=== PATIENT | male | born 1980 | race Caucasian/White ===

== ENCOUNTER 2016-09-18 12:51 | Emergency (ER) | payer SELFPAY ==
[~2016-09-18] VITALS: Ht 182.9 cm; Wt 95.3 kg
[2016-09-18] MEDS ORDERED: IV NORMAL SALINE 1,000ML 1,000 ML IV SCH (13:06)
[2016-09-18] MEDS ORDERED: ONDA4TAB7 PO (13:12)
--- NOTE | 2016-09-18 13:12 | PHYS DOC ---
Past History Past Medical History: No Pertinent History Past Surgical History: No Surgical History Alcohol Use: Occasionally Drug Use: Marijuana Adult General Chief Complaint Chief Complaint: NAUSEA/VOMITING/DIARRHEA HPI HPI 36-year-old male presenting to the emergency department today with nausea and vomiting. Been present for about 24-48 hours. He describes his vomitus is brown and yellow. It is nonbilious and nonbloody. He has a history of cannabis use and drinks fairly regularly. He denies fevers chills or abdominal pain. Location GI tract. Duration intermittent. No alleviating or exacerbating factors. Not improved with hot showers. Review of systems is negative for chest pain shortness of breath fevers chills. He denies diarrhea. All other review of systems is negative unless otherwise noted in history of present illness. ED course: 28-year-old gentleman presenting to the ER today with nausea and vomiting for the past few days. He reports dark urine as well and thinks she may be dehydrated. Vital signs afebrile with mild hypertension otherwise pulse within normal limits. labs obtained which showed elevated bilirubin in mild elevation in transaminases. Ultrasound obtained which was unremarkable for any acute pathology.. Physical exam shows a soft nontender abdomen. Negative McBurney's point. Negative Cook sign. The patient was given IV fluids nausea medication and lorazepam for anxiety. On reexamination the patient improved significantly. Repeat abdominal examination continues show soft nontender abdomen. He is feeling much better and was subsequent discharged home in stable condition. The patient was then discharged home in stable condition to follow up with their primary care physician over the next 2-3 days. They were to return if their symptoms worsened or if they were concerned for any reason. Face -to-face discharge instructions and return precautions were given. Patient's questions were answered to their satisfaction. Patient is comfortable plan. Review of Systems Review of Systems SEE ABOVE. Allergies Allergies Allergies Uncoded Allergies Type Severity Reaction Last Updated Verified pcn Allergy Unknown 09/18/16 Physical Exam Physical Exam Constitutional: Well developed, well nourished, no acute distress, non-toxic appearance. [] HENT: Normocephalic, atraumatic, bilateral external ears normal, oropharynx moist, no oral exudates, nose normal. [] Eyes: PERRLA, EOMI, conjunctiva normal, no discharge. [] Neck: Normal range of motion, no tenderness, supple, no stridor. [] Cardiovascular:Heart rate regular rhythm, no murmur [] Lungs & Thorax: Bilateral breath sounds clear to auscultation [] Abdomen: Bowel sounds normal, soft, no tenderness, no masses, no pulsatile masses. [] Skin: Warm, dry, no erythema, no rash. [] Back: No tenderness, no CVA tenderness. [] Extremities: No tenderness, no cyanosis, no clubbing, ROM intact, no edema. [] Neurologic: Alert and oriented X 3, normal motor function, normal sensory function, no focal deficits noted. [] Psychologic: Affect normal, judgement normal, mood normal. [] EKG EKG [] Radiology/Procedures Radiology/Procedures [] Course & Med Decision Making Course & Med Decision Making Pertinent Labs and Imaging studies reviewed. (See chart for details) [] Dragon Disclaimer Dragon Disclaimer This chart was dictated in whole or in part using Voice Recognition software in a busy, high-work load, and often noisy Emergency Department environment. It may contain unintended and wholly unrecognized errors or omissions. Departure Departure: Impression: Primary Impression: Nausea and vomiting Additional Impressions: Transaminitis Elevated bilirubin Disposition: HOME, SELF-CARE Condition: STABLE Referrals: PCP,NO (PCP) ANA HAIR MD Patient Instructions: Nausea and Vomiting, [id number] Additional Instructions: Thank you for allowing us to participate in your care today. Followup with your primary care physician in 3 days if your symptoms do not improve. Call your Primary Doctor tomorrow and inform them of your visit today. If you do not have a primary care provider you can ask for a list of our primary care providers. Return to the emergency department you have any new or concerning findings. This should be evaluated by the primary care physician and any necessary consulting services for continued management within a few days after discharge. Return to emergency room if you have any new or concerning symptoms including but not limited to fever, chills, nausea, vomiting, intractable pain, any new rashes, chest pain, shortness of air, uncontrolled bleeding, difficulty breathing, and/or vision loss. Scripts Ondansetron Hcl (ZOFRAN) 4 Mg Tablet 1 TAB PO PRN Q6HRS Y for NAUSEA, #6 TAB Prov: SIN KHAN MD 09/18/16 Problem Qualifiers SIN KHAN MD Sep 18, 2016 13:12
[2016-09-18 13:24] LABS: BASO # 0.1 x10^3/uL (0.0-0.2); BASO % 1 % (0-3); EOS # 0.2 x10^3/uL (0.0-0.7); EOS % 3 % (0-3); HEMATOCRIT 51.3 % (39.0-53.0); HEMOGLOBIN 18.1 g/dL (13.0-17.5); LYMPH % 16 % (24-48); MEAN CORPUSCULAR HEMOGLOBIN 35 pg (25-35); MEAN CORPUSCULAR HGB CONC 35 g/dL (31-37); MEAN CORPUSCULAR VOLUME 101 fL (79-100); MONO # 0.7 x10^3/uL (0.0-1.1); MONO % 11 % (0-9); NEUT # 4.1 x10^3uL (1.8-7.7); NEUT % 69 % (31-73); PLATELET COUNT 134 x10^3/uL (140-400); RED CELL DISTRIBUTION WIDTH 13.4 % (11.5-14.5)
[2016-09-18] MEDS ORDERED: LORazepam 1 MG TABLET PO ONE (13:30)
[2016-09-18] MEDS ORDERED: ONDANSETRON PF 4 MG/2 ML VIAL. IV ONE (13:30)
[2016-09-18 13:39] LABS: ALBUMIN 3.8 g/dL (3.4-5.0); CALCIUM 9.2 mg/dL (8.5-10.1); DIRECT BILIRUBIN 0.5 mg/dL (0.0-0.2); GFR 83.6; POTASSIUM 4.6 mmol/L (3.5-5.1); TOTAL PROTEIN 7.6 g/dL (6.4-8.2)
--- NOTE | 2016-09-18 14:30 | RAD ---
Right upper quadrant abdominal ultrasound, 09/18/2016: History: Nausea, vomiting, elevated liver enzymes The gallbladder is within normal limits in size. There is no sonographic evidence of cholelithiasis. The gallbladder [place] are not thickened. No bile duct dilatation is seen. The liver demonstrates generalized increased echogenicity, most commonly due to fatty change. It measures 19 cm in craniocaudad extent at the level of the right lobe. No hepatic mass is seen. The visualized portions of the pancreatic body are unremarkable. Other portions of the pancreas were obscured by overlying bowel. The visualized portions of the right kidney are unremarkable. IMPRESSION: 1. No significant gallbladder abnormality is detected. 2. Hepatic steatosis
[2016-09-18 15:16] VITALS: BP 160/98
== END 2016-09-18 15:19 | disposition home or self-care (01) ==
LOC: ER 12:51
DX: R11.2 Nausea with vomiting, unspecified (principal); R74.0 Nonspecific elevation of levels of transaminase and lactic acid dehydrogenase [LDH]; E80.7 Disorder of bilirubin metabolism, unspecified; F12.10 Cannabis abuse, uncomplicated; Z88.0 Allergy status to penicillin
CPT/HCPCS: 36415; 76705; 80048; 80076; 83690; 85027; 96361; 96374; 99285; J2405; J7030